=== PATIENT | female | born 1955 | race Caucasian/White ===

== ENCOUNTER 2022-03-24 12:06 | Observation (INO) | payer MEDICARE ==
[2022-03-24] VITALS (33 sets, daily range): BP systolic 109–208; BP diastolic 55–132
[~2022-03-24] VITALS: Ht 157.5 cm; Wt 60.6 kg
[~2022-03-24 12:06] MED LIST: AMOXICILLIN/CL875 MG PO; AMOXICILLIN500 MG PO; AUGMENTIN875TAB PO; FLONASE NASAL50 MCG; GABAPENTIN300 MG PO; MOTRIN800 MG/TAB PO; NUCYNTA50 MG PO; PREDNISONE10 MG PO; TYLENOL500 MG PO
[2022-03-24 17:18] LABS: BASO% 0.2 % (0-3); EOS% 0.2 % (0-8); HEMOGLOBIN 14.5 g/dl (12.0-16.0); IMMATURE GRANULOCYTES 0.2 % (0.0-5.0); MEAN CELL VOLUME 96.6 fL CALC (80.0-100.0); MEAN CORPUSCULAR HGB 32.6 pG CALC (26.0-32.0); MEAN CORPUSCULAR HGB CONC 33.7 g/dL CAL (32.0-36.0); MONO% 5.4 % (2-13); NEUT# 4.38 thou/uL (2.00-7.15); RED BLOOD COUNT 4.45 mill/uL (4.20-5.60); RED CELL DISTRI WIDTH 12.8 % (11.5-15.5)
[2022-03-24 17:37] LABS: ALBUMIN 4.7 g/dL (3.2-5.0); ALKALINE PHOSPHATASE 89 u/l (38-126); ANION GAP 14 (6-22 (CALC)); BILIRUBIN, TOTAL 0.4 mg/dL (0.0-1.4); BUN 9 mg/dL (8-23); BUN/CREATININE RATIO 20 (12-20 (CALC)); CARBON DIOXIDE 28 mmol/l (22-30); CHLORIDE 106 mmol/l (95-108); CREATININE 0.5 mg/dL (0.5-1.0); GFR FOR AFR.AMER. > 60 ML/MIN (>=60 (CALC)); GFR OTHER RACES > 60 ML/MIN (>=60 (CALC)); POTASSIUM 3.9 mmol/l (3.5-5.1); SGOT/AST 34 u/l (9-36); SODIUM 144 mmol/l (137-146); TOTAL PROTEIN 7.5 g/dL (6.3-8.2)
[2022-03-24] MEDS ORDERED: DOXY-CAPS100 MG PO (18:17)
[2022-03-24 20:18] LABS: URINE BILIRUBIN - DIPSTICK NEGATIVE (NEGATIVE); URINE BLOOD DIPSTICK NEGATIVE (NEGATIVE); URINE COLOR YELLOW; URINE GLUCOSE - DIPSTICK NEGATIVE (NEGATIVE); URINE KETONE TRACE mg/dL (NEGATIVE); URINE LEUK ESTERASE NEGATIVE (NEGATIVE); URINE NITRITE - DIPSTICK NEGATIVE (Negative); URINE PROTEIN - DIPSTICK NEGATIVE (NEG-TRACE); URINE SPECIFIC GRAVITY 1.015; URINE UROBILINOGEN - DIPSTICK 0.2 E.U./dL (0.2)
[2022-03-25] VITALS (45 sets, daily range): BP systolic 89–180; BP diastolic 41–94
[2022-03-26] VITALS (8 sets, daily range): BP systolic 137–180; BP diastolic 60–94
[2022-03-27] VITALS (8 sets, daily range): BP systolic 147–185; BP diastolic 66–91
[2022-03-27 05:34] LABS: BASO% 0.3 % (0-3); EOS% 1.8 % (0-8); HEMOGLOBIN 12.9 g/dl (12.0-16.0); IMMATURE GRANULOCYTES 0.2 % (0.0-5.0); LYMPH% 25.8 % (15-41); MEAN CELL VOLUME 96.2 fL CALC (80.0-100.0); MEAN CORPUSCULAR HGB 32.7 pG CALC (26.0-32.0); MEAN CORPUSCULAR HGB CONC 33.9 g/dL CAL (32.0-36.0); MONO% 11.3 % (2-13); NEUT# 3.63 thou/uL (2.00-7.15); NEUT% 60.6 % (42-76); RED BLOOD COUNT 3.95 mill/uL (4.20-5.60); RED CELL DISTRI WIDTH 13.2 % (11.5-15.5)
[2022-03-27 05:54] LABS: ALKALINE PHOSPHATASE 65 u/l (38-126); BILIRUBIN, TOTAL 0.4 mg/dL (0.0-1.4); BUN 10 mg/dL (8-23); BUN/CREATININE RATIO 20 (12-20 (CALC)); CARBON DIOXIDE 25 mmol/l (22-30); CHLORIDE 106 mmol/l (95-108); CREATININE 0.5 mg/dL (0.5-1.0); GFR FOR AFR.AMER. > 60 ML/MIN (>=60 (CALC)); GFR OTHER RACES > 60 ML/MIN (>=60 (CALC)); POTASSIUM 4.2 mmol/l (3.5-5.1); SGOT/AST 30 u/l (9-36)
[2022-03-27 05:55] LABS: ALBUMIN 3.3 g/dL (3.2-5.0); ANION GAP 7 (6-22 (CALC)); SODIUM 134 mmol/l (137-146); TOTAL PROTEIN 5.7 g/dL (6.3-8.2)
[2022-03-28] VITALS (9 sets, daily range): BP systolic 156–177; BP diastolic 78–91
[2022-03-28 05:14] LABS: BASO% 0.8 % (0-3); HEMATOCRIT 37.4 % (37.0-47.0); HEMOGLOBIN 12.6 g/dl (12.0-16.0); IMMATURE GRANULOCYTES 0.4 % (0.0-5.0); LYMPH% 32.2 % (15-41); MEAN CELL VOLUME 95.9 fL CALC (80.0-100.0); MEAN CORPUSCULAR HGB 32.3 pG CALC (26.0-32.0); MEAN CORPUSCULAR HGB CONC 33.7 g/dL CAL (32.0-36.0); MONO% 12.4 % (2-13); NEUT# 2.56 thou/uL (2.00-7.15); NEUT% 51.2 % (42-76); RED BLOOD COUNT 3.9 mill/uL (4.20-5.60)
[2022-03-28 05:46] LABS: ALBUMIN 3.2 g/dL (3.2-5.0); ALKALINE PHOSPHATASE 60 u/l (38-126); ANION GAP 7 (6-22 (CALC)); BILIRUBIN, TOTAL 0.5 mg/dL (0.0-1.4); BUN 15 mg/dL (8-23); BUN/CREATININE RATIO 30 (12-20 (CALC)); CARBON DIOXIDE 26 mmol/l (22-30); CHLORIDE 107 mmol/l (95-108); CREATININE 0.5 mg/dL (0.5-1.0); GFR FOR AFR.AMER. > 60 ML/MIN (>=60 (CALC)); GFR OTHER RACES > 60 ML/MIN (>=60 (CALC)); POTASSIUM 4.5 mmol/l (3.5-5.1); SGOT/AST 26 u/l (9-36); SODIUM 136 mmol/l (137-146); TOTAL PROTEIN 5.6 g/dL (6.3-8.2)
[2022-03-28] MEDS ORDERED: TRAMADOL HCL50 MG PO (11:13)
[2022-03-28] MEDS ORDERED: CEPHALEXIN500 MG PO (11:13)
[2022-03-28] MEDS ORDERED: LOPRESSOR25 MG PO (11:13)
== END 2022-03-28 21:35 | disposition home or self-care (01) ==
LOC: ED 12:06 → ED-I 18:24 → ED 22:14 → ICU 22:15 → MS2 03-25 18:01
PROVIDERS: Emergency Medicine; Family Medicine; Nurse Practitioner Family; ADMIT Internal Medicine; ATTEND Internal Medicine
DX: L03.811 Cellulitis of head [any part, except face] (principal); S01.01XA Laceration without foreign body of scalp, initial encounter; S99.912A Unspecified injury of left ankle, initial encounter; I10 Essential (primary) hypertension; M25.512 Pain in left shoulder; M79.605 Pain in left leg; W22.09XA Striking against other stationary object, initial encounter; V43.52XA Car driver injured in collision with other type car in traffic accident, initial encounter